=== PATIENT | female | born 1970 | race Caucasian/White ===

== ENCOUNTER 2016-07-26 07:38 | Emergency (ER) | payer BC ==
[2016-07-26 07:55] VITALS: BP 123/85
--- NOTE | 2016-07-26 08:09 | EDM.PDOC ---
ED HPI Trauma - General Chief Complaint: Lower Extremity Injury/Pain Stated Complaint: L ANKLE INJURY Time Seen by Provider: 07/26/16 07:51 Source: Reports: Patient History Limitations: Reports: No limitations - History of Present Illness INITIAL COMMENTS - FREE TEXT/NARRATIVE: The patient slipped on the steps last night and she twisted her left ankle. She heard a pop. She could not walk on her left ankle. Occurred When: just prior to arrival Occurred Where: home Method of Injury: fall Severity: severe Pain/Injury Location: Reports: lower extremity, left (ankle) Consciousness: Reports: no loss of consciousness Associated Symptoms: Reports: no other symptoms Allergies/ADRs: Allergies Penicillins Allergy (Verified 07/26/16 07:49) Vomiting Home Medications: Ambulatory Orders Hydrocodone/Acetaminophen [Hydrocodon-Acetaminophen 5-325] 1 - 2 each PO Q6HR PRN #20 tablet 07/26/16 Past Medical History - Past Health History Medical/Surgical History: Denies Medical/Surgical History HEENT History: Reports: Impaired vision Cardiovascular History: Reports: None Respiratory History: Reports: None Neurological History: Reports: None Psychiatric History: Reports: None Endocrine/Metabolic History: Reports: None Hematologic History: Reports: None Oncologic (Cancer) History: Reports: None Dermatologic History: Reports: None - Past Surgical History HEENT Surgical History: Reports: Tonsillectomy GI Surgical History: Reports: Appendectomy Female Surgical History: Reports: Hysterectomy, Tubal ligation Musculoskeletal Surgical History: Reports: Shoulder surgery Social & Family History - Family History Family Medical History: Noncontributory Cardiac: Reports: Other (see below) Other Cardiac Family History: Brother had NE at age 48 - Tobacco Use Smoking Status *Q: Current Every Day Smoker Years of Tobacco use: 6 Packs/Tins Daily: 0.5 - Caffeine Use Caffeine Use: Reports: Tea - Alcohol Use Days Per Week of Alcohol Use: 3 Number of Drinks Per Day: 3 Total Drinks Per Week: 9 - Recreational Drug Use Recreational Drug Use: No - Living Situation & Occupation Living situation: Reports: , with family (Father) Occupation: employed (filling technician) Review of Systems - Review of Systems Review Of Systems: See Below Constitutional: Reports: no symptoms Eyes: Reports: no symptoms Ears: Reports: no symptoms Nose: Reports: no symptoms Mouth/Throat: Reports: no symptoms Respiratory: Reports: No Symptoms Cardiovascular: Reports: no symptoms GI/Abdominal: Reports: No symptoms Genitourinary: Reports: no symptoms Musculoskeletal: Reports: leg pain (Left ankle), joint swelling (Left ankle) Trauma Exam - Physical Exam Exam: See Below Exam Limited By: No limitations General Appearance: Reports: alert, no apparent distress Head: Reports: atraumatic, normocephalic Ears: Reports: normal external exam Nose: Reports: normal inspection Respiratory Exam: Reports: no respiratory distress Extremities: Reports: other (Moderate edema to the lateral left ankle and moderate pain upon palpation. Good sensation and pulses distally.) Course - Vital Signs Last Recorded V/S: Last Vital Signs Temp 97.0 F 07/26/16 07:50 Pulse 73 07/26/16 07:50 Resp 16 07/26/16 07:50 BP 123/85 07/26/16 07:50 Pulse Ox 100 07/26/16 07:50 - Orders/Labs/Meds Orders: Active Orders 24 hr Category Date Time Status Ankle Min 3V Lt [CR] Stat Exams 07/26/16 08:04 Taken - Re-Assessments/Exams Free Text/Narrative Re-Assessment/Exam: 07/26/16 08:50 There appears to be a small chip fracture off of the lateral malleolus. I will put her in a walking but and be non weight bearing and crutches. I will have her take some hydrocodone for pain. Departure - Departure Time of Disposition: 08:55 Disposition: Home, Self-Care 01 Condition: good Clinical Impression: Fracture of distal fibula Qualifiers: Encounter type: initial encounter Fracture type: closed Fracture morphology: unspecified fracture morphology Laterality: left Qualified Code(s): S82.832A - Other fracture of upper and lower end of left fibula, initial encounter for closed fracture Prescriptions: Hydrocodone/Acetaminophen [Hydrocodon-Acetaminophen 5-325] 1 - 2 each PO Q6HR PRN #20 tablet PRN Reason: Pain Referrals: Hardik Centeno MD [Physician] - 1 Week Forms: ED Department Discharge Additional Instructions: Ice your ankle for 15 minutes every other hour while awake for 2 days. Elevate your ankle as much as you can for 2 days. Take an antiinflammatory such as motrin or aleve or take the hydrocodone for pain. Wear the walking boot and stay non weight bearing for a few days. Follow up with Dr Centeno within the week. Please return if you are worse. - My Orders Last 24 Hours: My Active Orders 07/26/16 08:04 Ankle Min 3V Lt [CR] Stat - Assessment/Plan Last 24 Hours: My Active Orders 07/26/16 08:04 Ankle Min 3V Lt [CR] Stat
--- NOTE | 2016-07-26 09:35 | CR ---
Left ankle: Four views of the left ankle were obtained. Comparison: No previous study. Soft tissue swelling is identified. Ankle mortise is symmetric. Small plantar spur is seen. No acute fracture or other bony abnormality is seen. Impression: 1. Soft tissue swelling. No acute bony abnormality is identified on left ankle study. Diagnostic code #3
== END 2016-07-26 09:10 | disposition home or self-care (01) ==
LOC: JD.ED 07:38
DX: S82.832A Other fracture of upper and lower end of left fibula, initial encounter for closed fracture (principal); W10.8XXA Fall (on) (from) other stairs and steps, initial encounter; Z88.0 Allergy status to penicillin; F17.210 Nicotine dependence, cigarettes, uncomplicated; Z90.49 Acquired absence of other specified parts of digestive tract; Z98.890 Other specified postprocedural states; Z90.710 Acquired absence of both cervix and uterus
CPT/HCPCS: 73610-26-LT; 73610-LT; 99283